=== PATIENT | female | born 1990 | race Caucasian/White ===

== ENCOUNTER 2019-04-06 08:12 | Emergency (ER) | payer BC, SELFPAY ==
[2019-04-06 08:13] VITALS: BP 162/92; PULSE 84; RESP 19; TEMP 36.2; O2SAT 100; BMI 21.6
--- NOTE | 2019-04-06 08:37 | EKG12_ITS ---
Test Reason : DIZZINESS Blood Pressure : / mmHG Vent. Rate : 069 BPM Atrial Rate : 069 BPM P-R Int : 144 ms QRS Dur : 076 ms QT Int : 386 ms P-R-T Axes : 053 053 049 degrees QTc Int : 413 ms Normal sinus rhythm with sinus arrhythmia Normal ECG Confirmed by BAYLEE PORRAS ([id number]), supervising editor trailer BRODERICK FRAGA ([id number]) on 04/11/2019 2:41:42 PM Referred By: FAY Confirmed By:MIRIAM PORRAS
--- NOTE | 2019-04-06 08:39 | NURSING ---
NO OLD EKGS
--- NOTE | 2019-04-06 08:51 | ED.VISSUMM ---
- ER Visit Summary Date of Service: 04/06/19 Chief Complaint: Episodes of palpitations History of Present Illness: The patient is a 29 F who states that she has been having episodes of abnormal sensations for several months. Today at approximately 0500 hrs. she was at work. She developed a pressure-like sensation in her neck that spread up to her head. She felt her heart beating strongly. She felt lightheaded. She felt like she might pass out. This resolved after approximately 20 minutes. She has similar episode the other day that was during a stressful episode and felt better after lunch. She had several other episodes over the November and December mostly during very stressful situations. She states that sometimes the food does help but other times time and removing herself from the situation. She is not taking her pulse during the episodes. 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 She recently has been assigned a new primary care provider. Appointment in May. Physical Examination: Afebrile vital signs are stable Gen: Well-nourished well-developed Head: Normocephalic atraumatic Eyes: Perrl EOMI ENT: TMs clear no rhinorrhea moist mucous membranes Neck: Supple no lymphadenopathy no JVD nontender CVS: Regular rate rhythm no murmurs normal S1-S2 Respiratory: No distress clear to auscultation bilaterally chest nontender Abdomen: Soft nontender nondistended normal bowel sounds no masses Back: Nontender Extremity: Nontender no edema Skin: Normal color no rash Neuro: alert orientated ?3 CN II-XII intact normal strength sensation reflexes gait cerebellar Psych: Tearful at times. Appears anxious. Test Results: CBC normal. Potassium 3.1. TSH is normal test is negative. Chest x-ray normal mediastinal silhouette. EKG sinus at a rate of 69. Emergency Department Course and Treatment: Patient has had no events on the monitor. I am going to replace her potassium. She will need follow-up to ensure that it is back in the normal range. I think most likely etiology for her symptoms is panic attacks. I would strongly recommend she follow-up with her primary care physician. Impression: 1. Palpitations 2. Hypokalemia This note was generated with [employer] dictation software. It may contain incorrect words, spelling, and punctuation that were not noted in review of the chart prior to signing ED Disposition - Plan for ED Patient: Disposition: Home or Assisted Living Instructions: ED Panic Attack, ED Palpitations, Discharge Instructions for Hypokalemia Prescriptions: Potassium Chloride [K-Dur] 40 meq PO DAILY #10 tab Additional Instructions: Please call your new primary care provider to arrange early follow-up from the emergency room.
--- NOTE | 2019-04-06 08:54 | ED.DCSUM_ITS ---
- ER Visit Summary Date of Service: 04/06/19 Chief Complaint: Episodes of palpitations History of Present Illness: The patient is a 29 F who states that she has been having episodes of abnormal sensations for several months. Today at approximately 0500 hrs. she was at work. She developed a pressure-like s ensation in her neck that spread up to her head. She felt her heart beating strongly. She felt lightheaded. She felt like she might pass out. This resolved after approximately 20 minutes. She has similar episode the other day that was during a stressful episode and felt better after lunch. She had several other episodes over the November and December mostly during very stressful situations. She states that sometimes the food does help but other times time and removing herself from the situation. She is not taking her pulse during the episodes. 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 She recently has been assigned a new primary care provider. Appointment in May. Physical Examination: Afebrile vital signs are stable Gen: Well-nourished well-developed Head: Normocephalic atraumatic Eyes: Perrl EOMI ENT: TMs clear no rhinorrhea moist mucous membranes Neck: Supple no lymphadenopathy no JVD nontender CVS: Regular rate rhythm no murmurs normal S1-S2 Respiratory: No distress clear to auscultation bilaterally chest nontender Abdomen: Soft nontender nondistended normal bowel sounds no masses Back: Nontender Extremity: Nontender no edema Skin: Normal color no rash Neuro: alert orientated ?3 CN II-XII intact normal strength sensation reflexes gait cerebellar Psych: Tearful at times. Appears anxious. Test Results: CBC normal. Potassium 3.1. TSH is normal test is negative. Chest x-ray normal mediastinal silhouette. EKG sinus at a rate of 69. Emergency Department Course and Treatment: Patient has had no events on the monitor. I am going to replace her potassium. She will need follow-up to ensure that it is back in the normal range. I think most likely etiology for her symptoms is panic attacks. I would strongly recommend she follow-up with her primary care physician. Impression: 1. Palpitations 2. Hypokalemia This note was generated with [employer] software. It may contain incorrect words, spelling, and punctuation that were not noted in review of the chart prior to signing ED Disposition - Plan for ED Patient: Disposition: Home or Assisted Living Instructions: ED Panic Attack, ED Palpitations, Discharge Instructions for Hypokalemia Prescriptions: Potassium Chloride [K-Dur] 40 meq PO DAILY #10 tab Additional Instructions: Please call your new primary care provider to arrange early follow-up from the emergency room.
--- NOTE | 2019-04-06 09:11 | RAD_ITS ---
STUDY: X-RAY CHEST REASON FOR EXAM: Female, 29 years old. Palpitations. TECHNIQUE: PA and lateral views of the chest. COMPARISON: Comparison is made with prior study dated February 01, 2017. FINDINGS: Hyperinflation. The lungs are clear. There is no demonstrated pleural abnormality. Normal size heart. Normal mediastinum and daniela. Normal visualized pulmonary arteries. Normal visualized aortic arch and descending thoracic aorta. Normal visualized thoracic spine. Normal visualized ribs, clavicles, and shoulders. There is no demonstrated abnormality of the visualized soft tissue structures of the upper abdomen. RAD/Chest PA and Lateral IMPRESSION: Hyperinflation. The lungs are clear. Electronically Signed: Jorge Fernandez, at 9:26 EDT , Service support ,
[2019-04-06 09:24] LABS: Absolute Lymphocyte Count 1.54 X10^3/ul (0.83-4.51); Basophil# 0.03 X10^3/uL; Basophil% 0.4 % (0-1); Eosinophil# 0.07 X10^3/uL; Hematocrit 41.1 % (37-47); Hemoglobin 13.5 g/dl (12.0-15.0); Lymphocyte # 1.54 X10^3/ul (4.0); Mean Corp Hgb Conc 32.8 g/gl (32-36); Mean Corpuscular Hgb 29.9 pg (27.0-32.0); Mean Corpuscular Volume 90.9 fL (81-99); Mean Platelet Vol. 9.2 fl (6.2-12.0); Monocyte# 0.37 X10^3/uL; Monocyte% 5.3 % (0-10); Neutrophil # 4.99 X10^3/uL (2.7-7.7); Neutrophil % 71.2 % (47-70); Platelet Count 322 K/mm3 (150-450); RBC Distribution Width CV 12.8 % (11.6-14.6); RBC Distribution Width SD 42.8 fl (35.1-43.9); Red Blood Count 4.52 M/mm3 (4.2-5.4)
[2019-04-06 09:25] LABS: POSITIVE COUNT NO; POSITIVE DIFFERENTIAL NO; POSITIVE MORPHOLOGY NO
[2019-04-06 09:37] LABS: Anion Gap 9 (5-15); BUN 10 mg/dL (7-18); BUN/Creat Ratio 12.7 RATIO (10-20); Calcium,Total 8.8 mg/dL (8.5-10.1); Chloride 103 mmol/L (98-107); Creatinine, Serum 0.79 mg/dL (0.55-1.02); EST Glomerular Filtration Rate 93 mL/min (>60); Est Glom Filt Rate - Afr Amer 113 mL/min (>60); Estimated Creatinine Clearance 96.25 ml/min; Glucose 81 mg/dL (74-106); Potassium 3.1 mmol/L (3.5-5.1); Sodium Level 140 mmol/L (136-145); Thyroid Stim Hormone (TSH) 0.89 uIU/mL (0.358-3.74)
[2019-04-06 09:45] LABS: Internal QC Validated? YES +Cl - CLEAR BKGD; Pregnancy, Serum, hCG Quali. NEGATIVE Negative
[2019-04-06 10:32] VITALS: BP 112/80; PULSE 73; RESP 16; O2SAT 99
== END 2019-04-06 10:32 | disposition home or self-care (01) ==
PROVIDERS: Emergency Provider Emergency Medicine
DX: R00.2 Palpitations (principal); E87.6 Hypokalemia
CPT/HCPCS: 71046; 80048; 84443; 84703; 85025; 93005; 99284; A4216

== ENCOUNTER 2019-04-09 06:13 | Emergency (ER) | payer BC, SELFPAY ==
[2019-04-09 06:14] VITALS: BP 128/74; PULSE 116; RESP 20; TEMP 36.6; O2SAT 19; BMI 22.7
--- NOTE | 2019-04-09 06:19 | EKG12_ITS ---
Test Reason : CP Blood Pressure : / mmHG Vent. Rate : 115 BPM Atrial Rate : 115 BPM P-R Int : 144 ms QRS Dur : 066 ms QT Int : 310 ms P-R-T Axes : 051 057 025 degrees QTc Int : 428 ms Sinus tachycardia Nonspecific ST and T wave abnormality Abnormal ECG Confirmed by KIYA HERNÁNDEZ, YARELIS ([id number]), staff editor BRODERICK FRAGA ([id number]) on 04/11/2019 4:24:30 PM Referred By: TERE Confirmed By:YARELIS HUERTAS MD
[2019-04-09 06:23] VITALS: BP 128/74; PULSE 99; RESP 16; O2SAT 100
[2019-04-09 06:47] VITALS: BP 121/77; BP 129/78; BP 139/55; PULSE 105; PULSE 108; PULSE 84
[2019-04-09 06:48] LABS: D-Dimer Quantitative (DVT/PE) 0.52 FEU/ug/m (0.27-0.49)
--- NOTE | 2019-04-09 06:48 | CT_ITS ---
HISTORY: ELEV D DIMER, CP, CHEST PRESSURE, HX-ASTHMA EXAMINATION: CTA Chest WO/W Contrast TECHNIQUE: Helically acquired images were obtained of the chest following IV contrast as per pulmonary angiogram protocol with 3D reconstructions. A radiation dose optimization technique was used for this scan. IV Contrast dosage and agent: 75 Isovue 370 COMPARISON: Two-view chest 04/06/2019 and CTA chest 02/01/2017 FINDINGS: PULMONARY ARTERIES: Normal in caliber. No pulmonary embolism. AORTA AND GREAT VESSELS: Normal in caliber. No evidence of dissection. HEART AND PERICARDIUM: Heart size is normal. There is no pericardial effusion. No signs of right heart strain. MEDIASTINUM AND GELY: There is no mediastinal or hilar adenopathy. OTHER SOFT TISSUES: Included thyroid gland is unremarkable. No lymphadenopathy LUNGS AND LARGE AIRWAYS: Clear. No pneumothorax. PLEURA: Unremarkable. No pleural effusion or thickening. BONES: No suspicious lytic or blastic abnormality observed. CT/CTA Chest W/WO Contrast IMPRESSION: Normal CTA chest. No evidence of PE or acute chest disease. No pulmonary infiltrate. Individualized dose optimization techniques were used for this CT. at 0744 Reported and signed by: Robson Hernandez MD Electronically Signed: Robson Hernandez, at 7:43 EDT Tel , Service support ,
--- NOTE | 2019-04-09 06:50 | ED.RN ---
D-DIMER 0.[address] CARRANZA. VERBALIZED UNDERSTANDING
--- NOTE | 2019-04-09 07:06 | ED.RN ---
BEDSIDE REPORT GIVEN TO RICHY
--- NOTE | 2019-04-09 07:22 | ED.DCSUM_ITS ---
- ER Visit Summary Date of Service: 04/09/19 Chief Complaint: [Chest pain] History of Present Illness: The patient is a 29 F [presents the emergency department complaint of chest discomfort that started while at work about an hour and a half ago. Patient states she is at this intermittent sharp stabbing pain in the right side of her chest that at times radiates to her back. Pain is fleeting and long last few seconds. She denies any real shortness of breath with it. Patient did feel somewhat lightheaded. Patient was in the emergency department about 2 days ago when seen for some palpitations and near syncope. Her work-up was unremarkable and was felt patient symptoms may be related to anxiety. Patient denies recent travel or surgery. She denies fever or recent illness.] Physical Examination: [HEENT-PERRLA, EOMI. Cranial nerves II through XII grossly intact. TMs clear. Mucous membranes moist. No adenopathy. Cardiovascular-regular rate and rhythm without murmur or ectopy Lungs-clear to auscultation, chest wall stable without crepitus or subcu emphysema Abdomen-normoactive bowel sounds, soft, nontender, no rebound or rigidity, no peritoneal signs. Extremities-intact ?4, normal range of motion, normal pulses, atraumatic] Test Results: [EKG obtained arrival shows sinus tachycardia with a ventricular rate of 115 bpm with no acute I segment changes. D-dimer was elevated 0.52. CT of the chest was ordered to rule out PE. Orthostatic vital signs were negative.] Emergency Department Course and Treatment: [] Treatment Plan: [Pending CT results. Care of patient turned over the morning physician awaiting CT results and final disposition] Disposition: [pending] Impression: [Chest pain] This note was generated with [employer] dictation software. It may contain incorrect words, spelling, and punctuation that were not noted in review of the chart prior to signing ED Disposition - Plan for ED Patient: Referrals: Care Physician,No Primary [Primary Care Provider] -
--- NOTE | 2019-04-09 07:52 | ED.DEP ---
ED Disposition - Plan for ED Patient: Disposition: Home or Assisted Living Instructions: ED Palpitations Prescriptions: Lorazepam [Ativan] 0.5 mg PO TID PRN #10 tablet PRN Reason: Anxiety Referrals: Pepe Gamino MD [STAFF PHYSICIAN] - As Needed
[2019-04-09 08:09] VITALS: BP 106/68; PULSE 53; RESP 16; O2SAT 98
== END 2019-04-09 08:11 | disposition home or self-care (01) ==
PROVIDERS: Emergency Provider Emergency Medicine
DX: R00.2 Palpitations (principal); J45.909 Unspecified asthma, uncomplicated; Z79.51 Long term (current) use of inhaled steroids
CPT/HCPCS: 71275; 85379; 93005; 99284; Q9967; A4216

== ENCOUNTER 2020-07-09 20:45 | Emergency (ER) | payer BC, SELFPAY ==
[2020-07-09 20:46] VITALS: BP 122/83; PULSE 72; RESP 15; TEMP 37; O2SAT 97; BMI 22.3
--- NOTE | 2020-07-09 21:11 | EKG12_ITS ---
Test Reason : CHEST OTHER Blood Pressure : / mmHG Vent. Rate : 063 BPM Atrial Rate : 063 BPM P-R Int : 148 ms QRS Dur : 082 ms QT Int : 382 ms P-R-T Axes : 049 051 044 degrees QTc Int : 390 ms Normal sinus rhythm Normal ECG Confirmed by JOSEP HERNÁNDEZ, JAREN ([id number]), publications editor TESSA PAN ([id number]) on 07/10/2020 9:26:12 AM Referred By: PC Confirmed By:JAREN CAR MD
--- NOTE | 2020-07-09 21:12 | ED.VIS.GEN ---
History of Present Illness Chief Complaint: Chest Other Narrative: Patient is presenting with few day history of left-sided chest pain, it is worse when she takes a deep breath but it is also worse when she twists and turns. She has no recent travel history, she has no back pain or tearing sensation. She has no leg pain, calf pain or lower extremity edema. She has no other DVT or PE risk factor, she does not take control. She has no history of palpitations. No syncopal episodes Past Medical History - Allergies and Home Meds Allergies/Adverse Reactions: Allergies animal dander Allergy (Verified 07/09/20 20:46) Other cat dander Allergy (Verified 07/09/20 20:46) Other asthma attack nickel Allergy (Verified 07/09/20 20:46) Hives Primary Care Physician: Care Physician,No Primary [Primary Care Provider] - Past Medical History: None Smoking Status: Never smoker Review of Systems General: Denies: Fever ENT: Denies: Rhinorrhea, Sore throat Cardiovascular: Reports: Chest pain. Denies: Palpitations Respiratory: Denies: Dyspnea, Cough Gastrointestinal: Denies: Abdominal pain, Nausea Musculoskeletal: Denies: Myalgias, Arthralgias, Neck pain, Back pain Skin: Denies: Rash Neurological: Denies: Headache Psych: Denies: Depression Hematologic: Denies: Easy bruising Physical Exam Vital Signs/Narrative: Vital Signs Temp Pulse Resp BP Pulse Ox 07/09/20 20:46 98.6 F 72 15 122/83 H 97 General: Well nourished, Well developed Eyes: Perrl ENT: Moist mucous membranes Neck: Supple Cardiovascular: Regular rate, Regular rhythm Respiratory: No distress, CTA bilaterally, - - There is some reproducible left-sided chest tenderness underneath her left breast Abdomen: Soft, Nontender Back: Nontender, Normal Inspection Extremities: Nontender, No edema. Negative for: Tenderness Skin: Normal color Neurological: Normal Strength, Normal Sensation Diagnostic/Tx/Re-eval Chest X-Ray - ED: Read by ED Physician, Normal, Heart, Lungs, Mediastinum - Rhythm Strip Rhythm Strip: Sinus Rhythm Rate: 63 Ectopy: None - EKG Initial EKG Interpretation: - - Normal sinus rhythm with a rate of 63. Normal AR and QTc intervals. Normal EKG with no ischemic changes Interpreted by emergency doctor - Medical Decision Making Patient has a normal EKG and x-ray, she has negative PERC score. She appears well there is no indication for any further testing this is likely pleurisy I will discharge in stable condition ED Disposition - Plan for ED Patient: Disposition: Home or Assisted Living Instructions: ED Chest Pain Atypical Unkn Cause, ED Chest Pain Pleurisy Prescriptions: Naproxen [Naprosyn] 500 mg PO BID PRN #20 tab Transmission Status: Pending to [id number] [facility] Referrals: Care Physician,No Primary [Primary Care Provider] - 3-5 Days
--- NOTE | 2020-07-09 21:32 | RAD_ITS ---
STUDY: X-RAY CHEST REASON FOR EXAM: Female, 30 years old. Chest pain TECHNIQUE: PA and lateral views of the chest. COMPARISON: 04/06/2019 FINDINGS: There is no focal consolidation. Normal size heart. Normal mediastinum and daniela. Normal visualized pulmonary arteries. Normal visualized aortic arch and descending thoracic aorta. Normal visualized thoracic spine. Normal visualized ribs, clavicles, and shoulders. There is no demonstrated abnormality of the visualized soft tissue structures of the upper abdomen. RAD/Chest PA and Lateral IMPRESSION: No acute cardiopulmonary process. Electronically Signed: Maria T Luong MD at 22:03 EDT Tel , Service support ,
[2020-07-09 22:26] VITALS: BP 114/71; PULSE 68; RESP 18; O2SAT 99
== END 2020-07-09 22:26 | disposition home or self-care (01) ==
PROVIDERS: Emergency Provider Emergency Medicine
DX: R07.9 Chest pain, unspecified (principal)
CPT/HCPCS: 71046; 93005; 99282

== ENCOUNTER 2021-03-23 22:31 | Emergency (ER) | payer BC, SELFPAY ==
[2021-03-23 22:32] VITALS: BP 168/131; PULSE 95; RESP 16; TEMP 36.6; O2SAT 99; BMI 20.7
--- NOTE | 2021-03-23 22:41 | CT_ITS ---
HISTORY: trauma ADDITIONAL HISTORY: None. COMPARISON: CTA chest 04/09/2019 TECHNIQUE: CT images of the chest, abdomen, and pelvis were obtained with 100 mL Isovue-370 IV contrast. Enteric contrast was not given. A radiation dose optimization technique was utilized for this scan. Number of images including paperwork: 1100 FINDINGS: Motion artifact somewhat limits evaluation. CHEST: VASCULATURE: Unremarkable as imaged. HEART/PERICARDIUM: Unremarkable. MEDIASTINUM: Unremarkable. THYROID: Unremarkable imaged portions. LYMPH NODES: No pathologic-appearing adenopathy. LUNGS AND LARGE AIRWAYS: No consolidation or mass. PLEURAL SPACES: Unremarkable. ABDOMEN AND PELVIS: LIVER: No concerning focal lesion. GALLBLADDER: No radiopaque gallstones. BILIARY TREE: No significant biliary dilatation. PANCREAS: Unremarkable. SPLEEN: Unremarkable. ADRENAL GLANDS: Unremarkable. KIDNEYS AND URETERS: Unremarkable. GASTROINTESTINAL TRACT: No bowel obstruction. No significant bowel wall thickening. No localized inflammation. APPENDIX: No evidence of appendicitis. PERITONEUM, RETROPERITONEUM AND MESENTERY: No free air. No significant free fluid. VASCULATURE: Unremarkable. LYMPH NODES: No pathologic-appearing adenopathy. PELVIS: Distended bladder. BONES AND SOFT TISSUES: No acute skeletal findings. DEVICES: None CT/CT Chest, Abd, Pel w/Contrast IMPRESSION: 1. No acute abnormality of the chest. 2. No acute abdominopelvic abnormality. Individualized dose optimization techniques were used for this CT. at 2333 Reported and signed by: Matilda Maldonado MD Electronically Signed: Matilda Maldonado MD at 23:33 EDT Tel , Service support ,
--- NOTE | 2021-03-23 22:41 | CT_ITS ---
HISTORY: Trauma ADDITIONAL HISTORY: None provided. COMPARISON: None EXAMINATION/TECHNIQUE: CT Head or Brain W/O Contrast Injection. Axial, coronal and sagittal images. Number of images including paperwork: 236. A radiation dose optimization technique was used for this scan. FINDINGS: BRAIN: No acute hemorrhage or mass. No definite acute infarct; MRI more sensitive. VENTRICULAR SYSTEM: No hydrocephalus. PARANASAL SINUSES AND MASTOIDS: No air-fluid level in the imaged extent. Mild mucosal thickening noted. ORBITS: Unremarkable imaged extent. SKELETON AND SOFT TISSUES: Calvarium intact. ASPECTS score: Not applicable. CT/Brain/Head without Contrast IMPRESSION: No acute intracranial abnormality. Individualized dose optimization techniques were used for this CT. at 2328 Reported and signed by: Matilda Maldonado MD Electronically Signed: Matilda Maldonado MD at 23:28 EDT Tel , Service support ,
--- NOTE | 2021-03-23 22:42 | CT_ITS ---
HISTORY: Trauma ADDITIONAL HISTORY: None provided COMPARISON: None TECHNIQUE: Noncontrast CT images of the cervical spine. 2D images were reviewed to aid in assessment of the cervical spine. A radiation dose optimization technique was used for this scan. Number of images including paperwork: 921 FINDINGS: BONES: No acute fracture. No suspicious bone lesion. VERTEBRAL ALIGNMENT: No traumatic subluxation. Preservation of the normal cervical lordosis. DISCS AND JOINTS: Disc heights are preserved. SPINAL CANAL AND FORAMINA: No critical canal stenosis. SOFT TISSUES: No prevertebral soft tissue swelling. No pathologic-appearing cervical adenopathy. LUNG APICES: Unremarkable. PARANASAL SINUSES: Unremarkable imaged portions if any. CT/Spine Cervical without Contras IMPRESSION: Limited study due to motion artifact without definite acute osseous abnormality demonstrated. Follow-up as clinically warranted. Individualized dose optimization techniques were used for this CT. at 2335 Reported and signed by: Matilda Maldonado MD Electronically Signed: Matilda Maldonado MD at 23:35 EDT Tel , Service support ,
[2021-03-23 22:54] VITALS: BP 133/96
[2021-03-23 22:55] LABS: Absolute Lymphocyte Count 1.37 X10^3/uL (0.83-4.51); Absolute Neutrophil Count 5.8 X10^3/uL (2.0-7.7); Basophil# 0.05 X10^3/uL; Basophil% 0.6 % (0-1); Eosinophil# 0.15 X10^3/uL; Eosinophils% 1.9 % (0-5); Hematocrit 44.8 % (37-47); Hemoglobin 14.4 g/dL (12.0-15.0); Lymphocyte # 1.37 X10^3/ul (0.83-4.51); Lymphocyte % 17.3 % (19-41); Mean Corp Hgb Conc 32.1 g/dL (32-36); Mean Corpuscular Hgb 29.4 pg (27.0-32.0); Mean Corpuscular Volume 91.4 fL (81-99); Mean Platelet Vol. 9.3 fl (6.2-12.0); Monocyte# 0.55 X10^3/uL; Monocyte% 6.9 % (0-10); NRBC Flagged by Analyzer 0 % (0-5); Platelet Count 325 K/mm3 (150-450); White Blood Count 7.9 K/mm3 (4.4-11.0)
[2021-03-23 23:01] LABS: Amphetamine Urine VISTA NEGATIVE (<1000 ng/mL); Barbiturate Urine VISTA NEGATIVE (< 200 ng/mL); Benzodiazepine Urine VISTA NEGATIVE (< 200 ng/mL); Cocaine Urine VISTA NEGATIVE (< 300 ng/mL); Ecstacy Urine VISTA NEGATIVE (< 500 ng/mL); Methadone Urine VISTA NEGATIVE (< 300 ng/mL); PCP Urine VISTA NEGATIVE (< 25 ng/mL); THC Urine VISTA NEGATIVE (< 50 ng/mL); Vista UDS pH Range 6
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
[2021-03-23 23:12] LABS: AST(SGOT) 13 U/L (15-37); Alanine Aminotransfer ALT/SGPT 21 U/L (13-56); Alkaline Phosphatase 64 U/L (45-117); Anion Gap 7 (5-15); BUN 10 mg/dL (7-18); Bilirubin, Direct 0.11 mg/dL (0.00-0.30); Calcium,Total 8.7 mg/dL (8.5-10.1); Chloride 108 mmol/L (98-107); Creatinine, Serum 0.71 mg/dL (0.55-1.02); EST Glomerular Filtration Rate 103 mL/min (>60); Est Glom Filt Rate - Afr Amer 124 mL/min (>60); Estimated Creatinine Clearance 107.79 ml/min; Globulin 3.9 g/dL (2.2-4.2); Glucose 75 mg/dL (74-106); Potassium 3.3 mmol/L (3.5-5.1); Protein, Total 7.9 g/dL (6.4-8.2); Sodium Level 143 mmol/L (136-145)
[2021-03-23 23:18] LABS: Internal QC Validated? YES +Cl - CLEAR BKGD; Pregnancy, Urine Negative Negative
[2021-03-23 23:54] VITALS: PULSE 97; RESP 16; O2SAT 96
== END 2021-03-24 01:02 | disposition home or self-care (01) ==
PROVIDERS: Emergency Provider Emergency Medicine
DX: S30.1XXA Contusion of abdominal wall, initial encounter (principal); F10.129 Alcohol abuse with intoxication, unspecified; F90.9 Attention-deficit hyperactivity disorder, unspecified type; F17.200 Nicotine dependence, unspecified, uncomplicated; Z79.899 Other long term (current) drug therapy; Y90.7 Blood alcohol level of 200-239 mg/100 ml; V57.5XXA Driver of pick-up truck or van injured in collision with fixed or stationary object in traffic accident, initial encounter; Y93.I9 Activity, other involving external motion; Y92.410 Unspecified street and highway as the place of occurrence of the external cause; Y99.8 Other external cause status
CPT/HCPCS: 70450; 71260; 72125; 74177; 80048; 80076; 80307; 81025; 82077; 85025; 99285; Q9967; A4216

== ENCOUNTER 2021-12-18 15:58 | Emergency (ER) | payer BC, SELFPAY ==
[2021-12-18 15:59] VITALS: BP 140/81; PULSE 87; RESP 16; TEMP 36.4; O2SAT 100; BMI 19.1
--- NOTE | 2021-12-18 16:25 | CT_ITS ---
STUDY: CT ABDOMEN AND PELVIS WITH CONTRAST REASON FOR EXAM: Female, 31 years old. Left flank pain RADIATION DOSAGE (If Supplied By Facility): CTDIvol = ( 10.65 ) mGy, DLP = ( 230.95 ) mGycm TECHNIQUE: Transaxial images were obtained from the dome of the diaphragm to the symphysis pubis without oral contrast. IV 100mL Isovue-300 was administered. Sagittal and coronal images were reconstructed. Individualized dose optimization techniques were used for this CT. COMPARISON: None. FINDINGS: The visualized lung bases are unremarkable. The visualized portions of the heart are within normal limits. Liver is unremarkable aside from a 1 cm low-density cyst in the right lobe. Normal gallbladder and extrahepatic biliary system. Normal spleen. Normal pancreas. Normal bilateral adrenal glands. Normal right kidney. Normal left kidney. Normal visualized stomach. Nondistended fluid-filled small bowel loops are noted consistent with ileus. Retained stool noted throughout the majority of the colon. Normal colon. There is non-visualization of the appendix. Normal abdominal aorta. Normal inferior vena cava. Normal retroperitoneum. Normal urinary bladder. Normal-appearing uterus and physiologic ovarian cysts. Normal abdominal wall. Normal osseous structures. CT/Abdomen/Pelvis W IV Cont ONLY IMPRESSION: Small bowel ileus No suspicious solid organ abnormality simple 1 cm right hepatic cyst. No specific follow-up needed No free peritoneal fluid, air, or suspicious adenopathy Electronically Signed: Jason Buchanan MD at 17:44 EST ,
--- NOTE | 2021-12-18 16:26 | EDS_ITS ---
HPI HPI - GI History of Present Illness Chief Complaint: Diarrhea Detail of Chief Complaint: Left flank abdominal pain Informant: patient and spouse/S.O. Abdominal Pain/Flank Pain Onset: Weeks Context: Gradual Onset Timing: Intermittent Quality: Aching Location: LUQ and LLQ Current Severity: Mild Maximum Severity: Mild Worsened by: Nothing Relieved by: Nothing Nausea/Vomiting/Emesis GI Symptom: Positive for Nausea and Vomiting Severity: Mild Diarrhea/Melena/Hematochezia GI Symptom: Positive for Diarrhea; Negative for Melena and Hematochezia Stool Quality: Positive for Watery Severity: Mild Associated Symptoms Associated Symptoms: Negative for Dysuria, Frequency, Hematuria and Urgency Narrative Narrative: 31-year-old female past medical history of 2017, ADHD and asthma. States since November for she has had intermittent nausea and vomiting. That seemed to get better. In the Depomed intermittent left lower quadrant, left upper quadrant left flank pain. That is been more constant the last several days. She is also had diarrhea the last several days. Denies any fever. Denies any dysuria. Denies any melena. She is about a 20 pound weight loss but she attributes that to stopping her Adderall for ADHD. She denies any recent hospitalizations. Her only prior abdominal surgery was a . Prior similar symptoms: No Recent Illness/Hospitalization: No PFSH PFSH Medical History ADHD Home Medications albuterol sulfate [Ventolin HFA] 2 puff INHALATION Q6H PRN PRN 06/21/17 [History Last Taken Unknown] multivitamin [Daily Multiple Vitamin] 1 ea PO DAILY 08/12/17 [History Last Taken Unknown] potassium chloride 40 meq PO DAILY #10 tab 04/06/19 [Rx Last Taken Unknown] lorazepam 0.5 mg PO TID PRN #10 tab 04/09/19 [Rx Last Taken Unknown] naproxen 500 mg PO BID PRN #20 tab 07/09/20 [Rx Last Taken Unknown] naproxen 500 mg PO BID PRN #20 tab 07/09/20 [Rx Last Taken Unknown] famotidine 20 mg PO DAILY 12/18/21 [History Last Taken Unknown] potassium chloride 20 meq PO BID #20 tab 12/18/21 [Rx Last Taken Unknown] Allergy/AdvReac Type Severity Reaction Status Date / Time animal dander Allergy Other Verified 12/18/21 16:02 cat dander Allergy Other Verified 12/18/21 16:02 nickel Allergy Hives Verified 12/18/21 16:02 Social History Smoking Status: Former smoker ROS ROS ED ROS Narrative Nausea, vomiting and diarrhea. Abdominal pain. Weight loss. Review of Systems ROS Unobtainable: Denies due to encephalopathy Constitutional Constitutional ED: Denies chills, fever(s) or subjective ENT ENT ED: Denies ear pain, rhinorrhea or sore throat Cardiovascular Cardiovascular: Denies chest pain Respiratory/Chest Respiratory/Chest: Denies cough or dyspnea Gastrointestinal Gastrointestinal: Reports abdominal pain, diarrhea, nausea and vomiting Genitourinary Genitourinary ED: Denies dysuria Musculoskeletal Musculoskeletal: Denies myalgias Integumentary Denies rash Neurologic Neurologic: Denies headache(s) Psychiatric Psychiatric: Denies depression Endocrine Endocrinology: Denies polyuria Hematologic/Lymphatic Hematologic/Lymphatic: Denies easy bruising Allergic/Immunologic Allergic/Immunologic ED: Denies urticaria EXAM Physical Exam Narrative Exam Narrative: Healthy female no acute distress vital signs stable afebrile. HEENT exam unremarkable. Neck nontender no lymphadenopathy. Lungs clear to auscultation bilaterally. Heart regular rhythm no murmur. Abdomen is soft nondistended normal bowel sounds no peritoneal signs. Really no significant tenderness. No hernia or mass. No distention. Both the right upper right lower quadrant completely nontender. There is no signs of obstruction. Back nontender no reproducible flank pain or CVA tenderness. Moving all 4 extremities. Nontender no edema. Neurologically awake and alert. Const Vital Signs: 12/18/21 15:59 Temperature 97.6 F L Temperature Source Temporal Pulse Rate 87 Respiratory Rate 16 Blood Pressure 140/81 H Blood Pressure Mean 100 Pulse Ox 100 Oxygen Delivery Method Room Air Positive well nourished and well developed; Negative for obese, cachectic, contractures or unkempt General Appearance ED: well developed and NAD; Negative for unkempt, cachectic, contractures or pallor Nutritional Appearance: Negative for cachectic or obese HEENT Reports moist mucous membranes normocephalic and atraumatic Eyes PERRL and EOMs intact bilaterally General Eye ED: Negative for pale conjunctiva or scleral icterus Neck no lymphadenopathy and supple General: Negative for tenderness Resp normal respiratory effort and clear to auscultation bilaterally Auscultation: Negative for rales, rhonchi or wheezes Cardio regular rate, regular rhythm, S1 normal heart sound, S2 normal heart sound and no murmurs GI non-tender, non-distended and no masses Auscultation: normoactive bowel sounds Palpation: soft; Negative for tender, guarding or rigid Back/Spine no CVA tenderness General Back: Negative for CVA tenderness Cervical Spine: Negative for cervical spine tenderness Thoracic Spine / Upper Back: Negative for thoracic spinal tenderness Lumbar Spine / Lower Back: Negative for lumbar spinal tenderness Extremity full ROM General Extremety ED: Negative for edema or tenderness General Extremity: Negative for edema Neuro CN's II-XII intact bilaterally and moves all extremities Sensorium / Orientation: alert, oriented to person, oriented to place and oriented to time; Negative for orientation impaired, confused, lethargic or stuporous Motor Exam: strength 5/5 throughout Psych mental status grossly normal and thought process normal Appearance: Negative for unkempt Attitude: No agitated Mood & Affect: Negative for depressed, anxious or tearful Skin no wounds General Skin Exam: Negative for jaundice or pallor Lesions: no lesions Rashes: no rashes MDM MDM MDM Narrative Medical decision making narrative: 31-year-old female with a months worth of left-sided abdominal pain and weight loss. CAT scan and labs are pending. Exam is benign. Repeat exam patient is doing well at 7:10 PM. Abdomen is benign. Nontender nondistended. I went over all lab test with both the patient and her . They are comfortable with her being discharged home. She will be treated with magnesium citrate. She will be given a dose of potassium here prior to discharge and placed on potassium at home. She knows she needs to get that rechecked. Also she knows to return if increasing abdominal pain, vomiting or feeling worse. Lab Data Attestation: I reviewed the patient's lab results. Lab results narrative: CBC normal white count of 5. Hemoglobin 14. Hematocrit 43. Platelets are low at 103. Serum test negative. Chemistries show potassium is low at 2.7. Gap of 7. Normal BUN and creatinine. Liver enzymes unremarkable. Lipase normal at 72. Urinalysis negative. No nitrates. No white cells. No bacteria. Labs: Laboratory Results - last 24 hr 12/18/21 12/18/21 12/18/21 16:15 16:15 16:49 WBC 5.4 RBC 4.74 Hgb 14.1 Hct 43.4 MCV 91.6 MCH 29.7 MCHC 32.5 RDW Std Deviation 41.9 RDW Coeff of Miguel 12.3 Plt Count 103 L MPV 11.1 Immature Gran % (Auto) 0.400 Neut % (Auto) 65.4 Lymph % (Auto) 24.5 [place] % (Auto) 6.1 Eos % (Auto) 3.0 Baso % (Auto) 0.6 Absolute Neuts (auto) 3.6 Absolute Lymphs (auto) 1.33 Nucleated RBC % 0 Differential Comment SCANNED Sodium Cancelled Potassium Cancelled Chloride Cancelled Carbon Dioxide Cancelled Anion Gap Cancelled BUN Cancelled Creatinine Cancelled Estim Creat Clear Calc Cancelled Est GFR (MDRD) Af Amer Cancelled Est GFR (MDRD) Non-Af Cancelled BUN/Creatinine Ratio Cancelled Glucose Cancelled Calcium Cancelled Total Bilirubin Cancelled AST Cancelled ALT Cancelled Alkaline Phosphatase Cancelled Total Protein Cancelled Albumin Cancelled Globulin Cancelled Albumin/Globulin Ratio Cancelled Lipase Cancelled Serum , Qual NEGATIVE Urine Color Urine Clarity Urine pH Ur Specific [place] Urine Protein Urine Glucose (UA) Urine Ketones Urine Occult Blood Urine Nitrite Urine Bilirubin Urine Urobilinogen Ur Leukocyte Esterase Urine RBC Urine WBC Ur Squamous Epith Cells Urine Bacteria Urine Mucus 12/18/21 12/18/21 17:42 18:09 WBC RBC Hgb Hct MCV MCH MCHC RDW Std Deviation RDW Coeff of Miguel Plt Count MPV Immature Gran % (Auto) Neut % (Auto) Lymph % (Auto) [place] % (Auto) Eos % (Auto) Baso % (Auto) Absolute Neuts (auto) Absolute Lymphs (auto) Nucleated RBC % Differential Comment Sodium 142 Potassium 2.7 L* Chloride 111 H Carbon Dioxide 24.0 Anion Gap 7 BUN 9 Creatinine 0.44 L Estim Creat Clear Calc 155.35 Est GFR (MDRD) Af Amer 218 Est GFR (MDRD) Non-Af 180 BUN/Creatinine Ratio 20.6 H Glucose 75 Calcium 6.9 L Total Bilirubin 0.30 AST 8 L ALT 20 Alkaline Phosphatase 43 L Total Protein 5.7 L Albumin 3.0 L Globulin 2.7 Albumin/Globulin Ratio 1.1 Lipase 72 L Serum , Qual Urine Color Yellow Urine Clarity Clear Urine pH 6.0 Ur Specific [place] 1.010 Urine Protein 15 H Urine Glucose (UA) Normal Urine Ketones Negative Urine Occult Blood 250 H Urine Nitrite Negative Urine Bilirubin Negative Urine Urobilinogen Normal Ur Leukocyte Esterase Negative Urine RBC 0-5 SEEN Urine WBC 0 SEEN Ur Squamous Epith Cells 0-5 SEEN Urine Bacteria 0 SEEN Urine Mucus 0 SEEN Radiography Diagnostic Testing: Clinical Impression(s) from Imaging Studies Abdomen/Pelvis CT 12/18/21 16:25 IMPRESSION: Small bowel ileus No suspicious solid organ abnormality simple 1 cm right hepatic cyst. No specific follow-up needed No free peritoneal fluid, air, or suspicious adenopathy Electronically Signed: Jason Buchanan MD at 17:44 EST , CAT scan is consistent with constipation and/or early ileus. Discharge Plan Triage Chief Complaint: Diarrhea ED Provider: Albaro Velásquez Dx/Rx/DC Orders Clinical Impression: Ileus, Constipation, Acute hypokalemia Instructions: Treating Constipation Prescriptions: New potassium chloride 20 mEq tablet,ER particles/crystals 20 meq PO BID Qty: 20 RF: 0 No Action albuterol sulfate [Ventolin HFA] 1 INHALER inhaler 2 puff inhalation Q6H PRN PRN (Reason: Asthma) RF: 0 multivitamin [Daily Multiple] 1 EACH tablet 1 ea PO DAILY RF: 0 potassium chloride 20 MEQ tablet 40 meq PO DAILY Qty: 10 RF: 0 lorazepam 0.5 MG tablet 0.5 mg PO TID PRN (Reason: Anxiety) Qty: 10 RF: 0 naproxen 500 MG tablet 500 mg PO BID PRN Qty: 20 RF: 0 naproxen 500 MG tablet 500 mg PO BID PRN Qty: 20 RF: 0 famotidine 20 mg tablet 20 mg PO DAILY RF: 0 Primary Care Provider: Naila Conti NP Referrals: Naila Conti NP, [employer] [Primary Care Provider] - 3-5 Days if not improving Activity Restrictions/Additional Instructions: You have constipation. Plenty of fruits, vegetables and fiber. Magnesium citrate, drink the first bottle if no bowel movement in 2 to 4 hours drink the second. Potassium twice daily as your potassium is low. This should be rechecked in 2 to 4 weeks to ensure its improving. Return if you are feeling worse abdominal distention, severe pain or vomiting. Disposition Disposition: Home, Self Care
[2021-12-18 16:59] LABS: Absolute Lymphocyte Count 1.33 X10^3/uL (0.83-4.51); Absolute Neutrophil Count 3.6 X10^3/uL (2.0-7.7); Basophil# 0.03 X10^3/uL; Basophil% 0.6 % (0-1); Eosinophil# 0.16 X10^3/uL; Hematocrit 43.4 % (37-47); Hemoglobin 14.1 g/dL (12.0-15.0); Lymphocyte # 1.33 X10^3/ul (0.83-4.51); Lymphocyte % 24.5 % (19-41); Mean Corp Hgb Conc 32.5 g/dL (32-36); Mean Corpuscular Hgb 29.7 pg (27.0-32.0); Mean Corpuscular Volume 91.6 fL (81-99); Mean Platelet Vol. 11.1 fl (6.2-12.0); Monocyte# 0.33 X10^3/uL; Monocyte% 6.1 % (0-10); NRBC Flagged by Analyzer 0 % (0-5); Neutrophil # 3.55 X10^3/uL (2.7-7.7); Neutrophil % 65.4 % (47-70); POSITIVE COUNT YES; Platelet Count 103 K/mm3 (150-450); RBC Distribution Width CV 12.3 % (11.6-14.6); RBC Distribution Width SD 41.9 fl (35.1-43.9); Red Blood Count 4.74 M/mm3 (4.2-5.4); White Blood Count 5.4 K/mm3 (4.4-11.0)
[2021-12-18] MEDS: 0.9% Normal Saline 1,000 ML 1000 ML IV (17:00)
[2021-12-18 17:02] LABS: Differential Indicated SCAN CRITERIA MET
[2021-12-18 17:04] LABS: Internal QC Validated? YES +Cl - CLEAR BKGD; Pregnancy, Serum, hCG Quali. NEGATIVE Negative
[2021-12-18 17:34] LABS: Differential Comment SCANNED
[2021-12-18 17:46] LABS: Bacteria 0 SEEN /hpf (None Seen); Mucous, Urine 0 SEEN /hpf (<or=2+)
[2021-12-18 17:48] LABS: Color, Urine Yellow (Yellow); Glucose, Dipstick Normal (Normal); Ketone-Dipstick Negative (Negative); Leukocyte Esterase-Dipstick Negative /ul (Negative); Nitrite-Dipstick Negative (Negative); Occult Blood-Urine 250 /ul (Negative); Protein-Dipstick 15 mg/dl (Negative); Urine Bilirubin Dipstick Negative (Negative); Urine Clarity Clear (Clear); Urine Urobilinogen Normal (Normal)
[2021-12-18 18:04] LABS: Red Blood Cells-Urine 0-5 SEEN /hpf (0-5); Squamous Epithelial Cells - UA 0-5 SEEN /hpf (5-10); White Blood Cells 0 SEEN /hpf (0-5)
[2021-12-18 18:43] LABS: ALB/GLOB Ratio 1.1 RATIO (0.9-2.4); AST(SGOT) 8 U/L (15-37); Alanine Aminotransfer ALT/SGPT 20 U/L (13-56); Alkaline Phosphatase 43 U/L (45-117); Anion Gap 7 (5-15); BUN 9 mg/dL (7-18); BUN/Creat Ratio 20.6 RATIO (10-20); Calcium,Total 6.9 mg/dL (8.5-10.1); Chloride 111 mmol/L (98-107); Creatinine, Serum 0.44 mg/dL (0.55-1.02); EST Glomerular Filtration Rate 180 mL/min (>60); Est Glom Filt Rate - Afr Amer 218 mL/min (>60); Estimated Creatinine Clearance 155.35 ml/min; Globulin 2.7 g/dL (2.2-4.2); Glucose 75 mg/dL (74-106); Lipase 72 U/L (73-393); Potassium 2.7 mmol/L (3.5-5.1); Protein, Total 5.7 g/dL (6.4-8.2); Sodium Level 142 mmol/L (136-145)
[2021-12-18] MEDS: Potassium Chloride Oral Tablet 20 MEQ 40 MEQ PO (19:41)
[2021-12-18] MEDS: Magnesium Citrate 300 ML PO (19:45)
[2021-12-18 19:48] VITALS: PULSE 79; RESP 15; O2SAT 99
== END 2021-12-18 19:49 | disposition home or self-care (01) ==
PROVIDERS: Emergency Provider Emergency Medicine; PCP Registered Nurse; Visit Provider Emergency Medicine
DX: K56.7 Ileus, unspecified (principal); K59.00 Constipation, unspecified; F90.9 Attention-deficit hyperactivity disorder, unspecified type; E87.6 Hypokalemia; Z87.891 Personal history of nicotine dependence; J45.909 Unspecified asthma, uncomplicated
CPT/HCPCS: 74177; 80053; 81001; 83690; 84703; 85025; 96360; 96361; 99285; J7030; Q9967; A4216

== ENCOUNTER 2025-09-25 14:16 | Emergency (ER) | payer BC, SELFPAY ==
[2025-09-25 14:16] VITALS: BP 143/93; PULSE 96; RESP 18; TEMP 35.6; O2SAT 98; BMI 22.5
--- NOTE | 2025-09-25 14:45 | EKG12_ITS ---
Test Reason : CP
--- NOTE | 2025-09-25 14:47 | EX.ED.DYSGE1 ---
HPI History of Present Illness Chief Complaint: Palpitations Narrative Narrative: Patient is a 45-year-old female presenting to the emergency department for palpitations earlier today. Patient has no significant past medical history. However she thinks she has POTS that has not been diagnosed. Patient states that today she had a shot of espresso and about 2 to 3 hours later she developed palpitations to the point where she thought she was going to pass out. She did not actually lose consciousness. She did not fall. She states during that she felt her heart beating very fast and thinks it might have been irregular. States this has happened before. She denies any chest pain or shortness of breath at time of evaluation. Denies fever, chills, cough, abdominal pain, nausea, vomiting, diarrhea. Denies any lower extremity edema. Denies any use of hormone therapy including OCPs. Denies any history of DVT or PE. Denies any recent travel, hospitalizations or surgeries. Denies any drugs, alcohol or stimulant use other than caffeine. Denies any family history of sudden cardiac . [facility] Medical History ADHD Home Medications ?Medication ?Instructions ?Recorded ?Last Taken ?Type albuterol sulfate 90 mcg/actuation 2 puff inhalation Q6H PRN PRN 06/21/17 Unknown History aerosol inhaler (Ventolin HFA) Asthma multivitamin (Daily Multiple 1 ea PO DAILY 08/12/17 Unknown History tablet) potassium chloride 20 mEq 40 meq (2 x 20 mEq) PO DAILY #10 04/06/19 Unknown Rx tablet,extended release(part/cryst) tabs lorazepam 0.5 mg tablet 0.5 mg PO TID PRN Anxiety #10 tabs 04/09/19 Unknown Rx naproxen 500 mg tablet 500 mg PO BID PRN #20 tabs 07/09/20 Unknown Rx naproxen 500 mg tablet 500 mg PO BID PRN #20 tabs 07/09/20 Unknown Rx famotidine 20 mg tablet 20 mg PO DAILY 12/18/21 Unknown History potassium chloride 20 mEq 20 meq PO BID #20 tabs 12/18/21 Unknown Rx tablet,extended release(part/cryst) Allergy/AdvReac Type Severity Reaction Status Date / Time animal dander Allergy Other Verified 09/25/25 14:17 cat dander Allergy Other Verified 09/25/25 14:17 nickel Allergy Hives Verified 09/25/25 14:17 Social History Smoking Status: Former smoker ROS ROS ED ROS Narrative See HPI EXAM Physical Exam Narrative Exam Narrative: Vital signs: Reviewed General: Alert and oriented x 3. No acute distress HEENT: Head is normocephalic and atraumatic, sinuses nontender, pupils equal round and reactive. Nares are patent. Oropharynx and throat exams normal. Neck: Supple without lymphadenopathy nontender Cardiovascular: Regular rate and rhythm, no murmurs. No rubs or gallops. Normal S1 and S2 Respiratory: Clear to auscultation bilaterally. No wheezes, rales, rhonchi Abdominal: Soft and nontender. Normal bowel sounds. No guarding or rebound. Nonsurgical abdomen Extremities: No lower extremity edema noted. No tenderness. No bruising. Normal range of motion. Normal sensation. Skin: No rash or redness. Neurological: Cranial nerves II through XII are grossly intact. Normal strength and sensation. Normal cerebellar function The rest of the physical exam is unremarkable Const Vital Signs: 09/25/25 14:16 09/25/25 16:32 Temperature 96.1 F L 97.8 F Temperature Source Temporal Pulse Rate 96 69 Respiratory Rate 18 12 Blood Pressure 143/93 H 95/66 Blood Pressure Mean 109 75 Pulse Ox 98 98 Oxygen Delivery Method Room Air MDM MDM MDM Narrative Medical decision making narrative: Patient is a 35-year-old female presenting to the emergency department for palpitations. Patient was seen and examined. Vitals are stable. Patient resting bed comfortably no acute distress. Differential includes but is not limited to: Cardiac dysrhythmia, electrolyte imbalance, hyperthyroidism, Patient is PERC negative. EKG shows normal sinus rhythm with a sinus arrhythmia. There is no ischemic changes or dysrhythmia. No evidence of WPW. CBC with no leukocytosis and a normal hemoglobin. BMP with no significant abnormalities other than a very mildly low potassium at 3.2. TSH and magnesium within normal limits. Urine is negative. Chest x-ray reviewed by myself, no opacities, pneumothorax or widened mediastinum. Radiology read in agreement of a negative x-ray. Patient was reevaluated. Heart rate in the 70s to 80s. No irregular heart rhythm noted on the monitor. She is not having palpitations at time of evaluation. She is asymptomatic. She was updated on the negative findings. She was encouraged to follow-up with her PCP for possible Holter monitor if she continues having intermittent palpitations. Patient discharged from the Emergency Department. I do not feel that the patient's evaluation reveals any acute reason for admission at this time. I instructed them to either follow-up with their primary care physician or promptly return to the Emergency Department for reevaluation should symptoms worsen or new symptoms develop. I explained what symptoms would indicate the need to return to the emergency department. Shared decision making was used. The patient voiced understanding of the treatment plan and is agreeable with it. Clinical impression: Palpitations Hypokalemia History & Record Review Discussion w/independent historian: Patient and Significant other Additional record(s) reviewed:: Prior labs Lab Data Attestation: I reviewed the patient's lab results. Labs: Laboratory Results - last 24 hr 09/25/25 09/25/25 14:40 15:45 WBC 6.7 RBC 4.48 Hgb 13.3 Hct 39.2 MCV 87.5 MCH 29.7 MCHC 33.9 RDW Std Deviation 39.2 RDW Coeff of Miguel 12.2 Plt Count 304 MPV 10.0 Immature Gran % (Auto) 0.100 Neut % (Auto) 68.9 Lymph % (Auto) 19.0 [place] % (Auto) 7.7 Eos % (Auto) 3.7 Baso % (Auto) 0.6 Absolute Neuts (auto) 4.6 Absolute Lymphs (auto) 1.28 Nucleated RBC % 0 Sodium 136 Potassium 3.2 L Chloride 100 Carbon Dioxide 24.2 Anion Gap 11 BUN 13 Creatinine 0.76 Estim Creat Clear Calc 94.74 Est GFR (MDRD) Non-Af 106 BUN/Creatinine Ratio 16.7 Glucose 156 H Calcium 9.4 Magnesium 1.9 TSH 1.500 Urine Test Negative Radiography Chest X-Ray - ED: 2 View, Read by ED Physician, Normal, No Acute Disease and No Infiltrates Diagnostic Testing: Clinical Impression(s) from Imaging Studies Chest X-Ray 09/25/25 15:18 IMPRESSION: Lungs appear clear throughout. No pleural effusion or pneumothorax is noted. The cardiomediastinal silhouette is within the normal range. Minimal thoracic spine degenerative changes are seen. No evidence of acute cardiopulmonary disease. Reading Location: [place] [address] Discharge Plan Triage Chief Complaint: Palpitations ED Provider: Natacha Pierre Dx/Rx/DC Orders Clinical Impression: Hypokalemia, Heart palpitations Instructions: ED Hypokalemia, ED Heart Palpitations Prescriptions: No Action albuterol sulfate [Ventolin HFA] 1 INHALER inhaler 2 puff inhalation Q6H PRN PRN (Reason: Asthma) multivitamin [Daily Multiple] 1 EACH tablet 1 ea PO DAILY potassium chloride 20 MEQ tablet 40 meq PO DAILY Qty: 10 0RF lorazepam 0.5 MG tablet 0.5 mg PO TID PRN (Reason: Anxiety) Qty: 10 0RF naproxen 500 MG tablet 500 mg PO BID PRN Qty: 20 0RF naproxen 500 MG tablet 500 mg PO BID PRN Qty: 20 0RF famotidine 20 mg tablet 20 mg PO DAILY potassium chloride 20 mEq tablet,ER particles/crystals 20 meq PO BID Qty: 20 0RF Primary Care Provider: Naila Conti NP Referrals: Naila Conti NP, [facility] [Primary Care Provider, Medical] - As soon as possible Activity Restrictions/Additional Instructions: Follow-up with your primary care doctor and discuss possible Holter monitor placement. Your evaluation in the Emergency Department did not reveal any acute reason for admission. However, I want to emphasize that you may be early in the course of a disease process or illness even if it is not present. For this reason you should follow-up within 24 hours for reevaluation with either your primary care physician or if necessary back here in the Emergency Department. You should return to the Emergency Department immediately if your symptoms worsen or new symptoms develop. Print Language: Citizen Of [place] Disposition Disposition: Home, Self Care Discharge Date/Time: 09/25/25 16:36
[2025-09-25 15:18] LABS: Hematocrit 39.2 % (37-47); Hemoglobin 13.3 g/dL (12.0-15.0); Immature Granulocytes Count 0.010 X10^3/uL (0.0-0.0); Mean Corp Hgb Conc 33.9 g/dL (32-36); Mean Corpuscular Volume 87.5 fL (81-99); Mean Platelet Vol. 10.0 fl (6.2-12.0); NRBC Flagged by Analyzer 0 % (0-5); Platelet Count 304 K/mm3 (150-450); RBC Distribution Width CV 12.2 % (11.6-14.6); RBC Distribution Width SD 39.2 fl (35.1-43.9); Red Blood Count 4.48 M/mm3 (4.2-5.4); White Blood Count 6.7 K/mm3 (4.4-11.0)
--- NOTE | 2025-09-25 15:18 | RAD_ITS ---
PROCEDURE: RAD/Chest PA and Lateral
[2025-09-25 15:55] LABS: Anion Gap 11 (5-15); BUN 13 mg/dL (4-19); BUN/Creat Ratio 16.7 RATIO (10-20); Calcium,Total 9.4 mg/dL (7.6-11.0); Carbon Dioxide 24.2 mmol/L (21.0-32.0); Chloride 100 mmol/L (98-108); Estimated Creatinine Clearance 94.74 ml/min (50-250); Glucose 156 mg/dL (70-99); Magnesium 1.9 mg/dL (1.5-2.2); Potassium 3.2 mmol/L (3.3-5.1)
[2025-09-25 16:28] LABS: Internal QC Validated? YES +Cl - CLEAR BKGD; Pregnancy, Urine Negative Negative; Record Kit Lot#,Urine Preg 980607
[2025-09-25 16:32] VITALS: BP 95/66; PULSE 69; RESP 12; TEMP 36.6; O2SAT 98
== END 2025-09-25 16:36 | disposition home or self-care (01) ==
PROVIDERS: Emergency Provider Student in an Organized Health Care Education/Training Program; PCP Registered Nurse; Visit Provider Student in an Organized Health Care Education/Training Program
DX: E87.6 Hypokalemia (principal); R00.2 Palpitations; R55 Syncope and collapse; Z87.891 Personal history of nicotine dependence
CPT/HCPCS: 71046; 80048; 81025; 83735; 84443; 85025; 93005; 99284; A4216